=== PATIENT | male | born 1940 | race American Indian/Alaskan Native ===

== ENCOUNTER 2022-04-13 18:05 | Inpatient (IN) | payer MEDICARE ==
--- NOTE | 2022-04-13 20:49 | XRay Report ---
CHEST 1 VIEW 04/13/2022 8:26 PM INDICATION / CLINICAL INFORMATION: Altered Mental Status. COMPARISON: None available. FINDINGS: SUPPORT DEVICES: None. HEART / MEDIASTINUM: Upper limits of normal. LUNGS / PLEURA: Bilateral interstitial opacities are noted. There is airspace disease in the right lo wer lung. There is a small right pleural effusion. No pneumothorax. ADDITIONAL FINDINGS: No significant additional findings. IMPRESSION: 1. Diffuse interstitial opacities are of uncertain acuity. This could be due to pulmonary edema. Ther e is a small right pleural effusion. Given this, adjacent right lower lung airspace disease could be due to atelectasis. Correlate clinically for congestive failure. Signer Name: Mesfin Huang MD Signed: 04/13/2022 8:45 PM Workstation Name: [id number]
--- NOTE | 2022-04-13 21:06 | Emergency Department Report ---
ED General Adult HPI - General Chief complaint: Altered Mental Status Stated complaint: AMS Time Seen by Provider: 04/13/22 19:31 Source: patient, EMS Mode of arrival: Stretcher Limitations: Altered Mental Status - History of Present Illness Initial comments: The patient presents to the emergency department from a local assisted living for altered mental status x1 day. There is also reports that the patient was complaining of burning with urination. Patient is alert but slightly confused on exam but is able to answer questions. Patient denies chest pain, shortness breath, or abdominal pain. -: unknown Severity scale (0 -10): 2 Quality: burning Consistency: intermittent Improves with: none Worsens with: none Associated Symptoms: denies other symptoms Treatments Prior to Arrival: none - Related Data Allergies Allergy/AdvReac Type Severity Reaction Status Date / Time Penicillins AdvReac Unknown Verified 04/13/22 18:25 ED Review of Systems ROS: Stated complaint: AMS Other details as noted in HPI Comment: All other systems reviewed and negative Constitutional: denies: chills, fever Eyes: denies: eye pain, eye discharge, vision change ENT: denies: ear pain, throat pain Respiratory: denies: cough, shortness of breath, wheezing Cardiovascular: denies: chest pain, palpitations Endocrine: no symptoms reported Gastrointestinal: denies: abdominal pain, nausea, diarrhea Genitourinary: denies: urgency, dysuria Musculoskeletal: denies: back pain, joint swelling, arthralgia Skin: denies: rash, lesions Neurological: denies: headache, weakness, paresthesias Psychiatric: denies: anxiety, depression Hematological/Lymphatic: denies: easy bleeding, easy bruising ED Physical Exam - General Limitations: Altered Mental Status General appearance: alert, in no apparent distress - Head Head exam: Present: atraumatic, normocephalic - Eye Eye exam: Present: normal appearance, PERRL, EOMI - ENT ENT exam: Present: mucous membranes moist - Neck Neck exam: Present: normal inspection - Respiratory Respiratory exam: Present: rales. Absent: respiratory distress - Cardiovascular Cardiovascular Exam: Present: regular rate, normal rhythm. Absent: systolic murmur, diastolic murmur, rubs, gallop - GI/Abdominal GI/Abdominal exam: Present: soft, normal bowel sounds. Absent: distended, tenderness - Rectal Rectal exam: Present: deferred - Extremities Exam Extremities exam: Present: normal inspection - Back Exam Back exam: Present: normal inspection - Neurological Exam Neurological exam: Present: alert (But slightly confused ) - Skin Skin exam: Present: warm, dry, intact, normal color. Absent: rash ED Course Vital Signs 04/13/22 18:20 Temperature 98 F Pulse Rate 87 Respiratory 18 Rate Blood Pressure 104/71 [Left] O2 Sat by Pulse 99 Oximetry ED Medical Decision Making - Lab Data Result diagrams: 04/13/22 20:56 04/13/22 20:56 Lab Results 04/13/22 04/13/22 04/13/22 Range/Units 20:56 20:56 20:56 WBC 7.8 (4.5-11.0) K/mm3 RBC 3.97 (3.65-5.03) M/mm3 Hgb 8.9 L (11.8-15.2) gm/dl Hct 29.3 L (35.5-45.6) % MCV 74 L (84-94) fl MCH 22 L (28-32) pg MCHC 30 L (32-34) % RDW 22.5 H (13.2-15.2) % Plt Count 242 (140-440) K/mm3 Lymph % (Auto) 21.6 (13.4-35.0) % Clarke % (Auto) 6.5 (0.0-7.3) % Eos % (Auto) 2.5 (0.0-4.3) % Baso % (Auto) 1.4 (0.0-1.8) % Lymph # (Auto) 1.7 (1.2-5.4) K/mm3 Clarke # (Auto) 0.5 (0.0-0.8) K/mm3 Eos # (Auto) 0.2 (0.0-0.4) K/mm3 Baso # (Auto) 0.1 (0.0-0.1) K/mm3 Seg Neutrophils % 68.0 (40.0-70.0) % Seg Neutrophils # 5.3 (1.8-7.7) K/mm3 PT 16.6 H (12.2-14.9) Sec. INR 1.17 H (0.87-1.13) APTT 39.3 H (24.2-36.6) Sec. Sodium 142 (137-145) mmol/L Potassium 3.8 (3.6-5.0) mmol/L Chloride 106.4 (98-107) mmol/L Carbon Dioxide 22 (22-30) mmol/L Anion Gap 17 mmol/L BUN 27 H (9-20) mg/dL Creatinine 1.0 (0.8-1.3) mg/dL Estimated GFR > 60 ml/min BUN/Creatinine Ratio 27 % Glucose 94 (75-100) mg/dL Calcium 8.3 L (8.4-10.2) mg/dL Total Bilirubin 0.40 (0.1-1.2) mg/dL AST 10 (5-40) units/L ALT 8 (7-56) units/L Alkaline Phosphatase 194 H (35-129) units/L Ammonia (25-60) umol/L Total Creatine Kinase 25 L (55-170) units/L Troponin T 0.012 (0.00-0.029) ng/mL NT-Pro-B Natriuret Pep 81605 H (0-900) pg/mL Total Protein 6.5 (6.3-8.2) g/dL Albumin 2.8 L (3.9-5) g/dL Albumin/Globulin Ratio 0.8 % TSH (0.270-4.200) mlU/mL Salicylates (2.8-20.0) mg/dL Plasma/Serum Alcohol (0-0.07) % 04/13/22 04/13/22 04/13/22 Range/Units 20:56 20:56 20:56 WBC (4.5-11.0) K/mm3 RBC (3.65-5.03) M/mm3 Hgb (11.8-15.2) gm/dl Hct (35.5-45.6) % MCV (84-94) fl MCH (28-32) pg MCHC (32-34) % RDW (13.2-15.2) % Plt Count (140-440) K/mm3 Lymph % (Auto) (13.4-35.0) % Clarke % (Auto) (0.0-7.3) % Eos % (Auto) (0.0-4.3) % Baso % (Auto) (0.0-1.8) % Lymph # (Auto) (1.2-5.4) K/mm3 Clarke # (Auto) (0.0-0.8) K/mm3 Eos # (Auto) (0.0-0.4) K/mm3 Baso # (Auto) (0.0-0.1) K/mm3 Seg Neutrophils % (40.0-70.0) % Seg Neutrophils # (1.8-7.7) K/mm3 PT (12.2-14.9) Sec. INR (0.87-1.13) APTT (24.2-36.6) Sec. Sodium (137-145) mmol/L Potassium (3.6-5.0) mmol/L Chloride (98-107) mmol/L Carbon Dioxide (22-30) mmol/L Anion Gap mmol/L BUN (9-20) mg/dL Creatinine (0.8-1.3) mg/dL Estimated GFR ml/min BUN/Creatinine Ratio % Glucose (75-100) mg/dL Calcium (8.4-10.2) mg/dL Total Bilirubin (0.1-1.2) mg/dL AST (5-40) units/L ALT (7-56) units/L Alkaline Phosphatase (35-129) units/L Ammonia < 10.0 L (25-60) umol/L Total Creatine Kinase (55-170) units/L Troponin T (0.00-0.029) ng/mL NT-Pro-B Natriuret Pep (0-900) pg/mL Total Protein (6.3-8.2) g/dL Albumin (3.9-5) g/dL Albumin/Globulin Ratio % TSH 2.170 (0.270-4.200) mlU/mL Salicylates < 0.3 L (2.8-20.0) mg/dL Plasma/Serum Alcohol (0-0.07) % 04/13/22 Range/Units 20:56 WBC (4.5-11.0) K/mm3 RBC (3.65-5.03) M/mm3 Hgb (11.8-15.2) gm/dl Hct (35.5-45.6) % MCV (84-94) fl MCH (28-32) pg MCHC (32-34) % RDW (13.2-15.2) % Plt Count (140-440) K/mm3 Lymph % (Auto) (13.4-35.0) % Clarke % (Auto) (0.0-7.3) % Eos % (Auto) (0.0-4.3) % Baso % (Auto) (0.0-1.8) % Lymph # (Auto) (1.2-5.4) K/mm3 Clarke # (Auto) (0.0-0.8) K/mm3 Eos # (Auto) (0.0-0.4) K/mm3 Baso # (Auto) (0.0-0.1) K/mm3 Seg Neutrophils % (40.0-70.0) % Seg Neutrophils # (1.8-7.7) K/mm3 PT (12.2-14.9) Sec. INR (0.87-1.13) APTT (24.2-36.6) Sec. Sodium (137-145) mmol/L Potassium (3.6-5.0) mmol/L Chloride (98-107) mmol/L Carbon Dioxide (22-30) mmol/L Anion Gap mmol/L BUN (9-20) mg/dL Creatinine (0.8-1.3) mg/dL Estimated GFR ml/min BUN/Creatinine Ratio % Glucose (75-100) mg/dL Calcium (8.4-10.2) mg/dL Total Bilirubin (0.1-1.2) mg/dL AST (5-40) units/L ALT (7-56) units/L Alkaline Phosphatase (35-129) units/L Ammonia (25-60) umol/L Total Creatine Kinase (55-170) units/L Troponin T (0.00-0.029) ng/mL NT-Pro-B Natriuret Pep (0-900) pg/mL Total Protein (6.3-8.2) g/dL Albumin (3.9-5) g/dL Albumin/Globulin Ratio % TSH (0.270-4.200) mlU/mL Salicylates (2.8-20.0) mg/dL Plasma/Serum Alcohol < 0.01 (0-0.07) % - Medical Decision Making IV Lasix given IV antibiotics initiated Critical Care Time: Yes Critical care time in (mins) excluding proc time.: 35 Critical care attestation.: If time is entered above; I have spent that time in minutes in the direct care of this critically ill patient, excluding procedure time. ED Disposition Clinical Impression: Pulmonary edema, Altered mental status, UTI (urinary tract infection) Disposition: 09 ADMITTED INPATIENT Is pt being admited?: Yes Does the pt Need Aspirin: No Condition: Stable Instructions: Pulmonary Edema (ED) Referrals: PRIMARY CARE, [Primary Care Provider] - 3-5 Days
[2022-04-13 21:19] LABS: Basophils # (Auto) 0.1 K/mm3 (0.0-0.1); Basophils % (Auto) 1.4 % (0.0-1.8); Eosinophils # (Auto) 0.2 K/mm3 (0.0-0.4); Eosinophils % (Auto) 2.5 % (0.0-4.3); Hematocrit 29.3 % (35.5-45.6); Hemoglobin 8.9 gm/dl (11.8-15.2); Lymphocytes # (Auto) 1.7 K/mm3 (1.2-5.4); Lymphocytes % (Auto) 21.6 % (13.4-35.0); Mean Corpuscular HGB Conc 30 % (32-34); Mean Corpuscular Volume 74 fl (84-94); Monocytes # (Auto) 0.5 K/mm3 (0.0-0.8); Monocytes % (Auto) 6.5 % (0.0-7.3); Platelet Count 242 K/mm3 (140-440); Red Blood Count 3.97 M/mm3 (3.65-5.03)
[2022-04-13 21:22] LABS: Red Cell Distribution Width 22.5 % (13.2-15.2)
[2022-04-13 21:28] LABS: INR 1.17 (0.87-1.13)
[2022-04-13 21:29] LABS: Partial Thromboplastin Time 39.3 Sec. (24.2-36.6)
--- NOTE | 2022-04-13 21:35 | Cat Scan Report ---
CT HEAD WITHOUT CONTRAST INDICATION / CLINICAL INFORMATION: Altered Mental Status. TECHNIQUE: All CT scans at this location are performed using CT dose reduction for ALARA by means of automated e xposure control. COMPARISON: None available. FINDINGS: HEMORRHAGE: No evidence of intracranial hemorrhage or extra-axial fluid collection. EXTRA-AXIAL SPACES: Cortical sulci and sylvian fissures are enlarged reflecting a degree of parenchym al volume loss which is within normal limits for the patient's age of 81 years. Basilar cisterns have an unremarkable appearance. VENTRICULAR SYSTEM: The third and lateral ventricles are enlarged reflecting presence of age related parenchymal volume loss. CEREBRAL PARENCHYMA: Periventricular and deep white matter lucency is observed. This is probably seco ndary to microvascular ischemic change. There is no indication of recent infarction. No areas of ence phalomalacia are identified. MIDLINE SHIFT OR HERNIATION: There is no mass effect. CEREBELLUM / BRAINSTEM: Brainstem has an unremarkable appearance. Age related cerebellar atrophy is n oted. MIDLINE STRUCTURES:Pituitary gland has an unremarkable appearance. No abnormalities are seen in the p ineal region. INTRACRANIAL VESSELS:Calcified atherosclerotic plaque is present along the course of the cavernous se gments of both internal carotid arteries. Similar findings are seen at the distal vertebral arteries. CRANIOCERVICAL JUNCTION:No significant abnormality. ORBITS: visualized portions of the orbits have an unremarkable appearance. SOFT TISSUES of HEAD: No significant abnormality. CALVARIUM: Evaluation of bone windows reveals no abnormalities. PARANASAL SINUSES / MASTOID AIR CELLS: Paranasal sinuses are free from inflammatory mucosal disease. Mastoid air cells are normally pneumatized. IMPRESSION: 1. Age-related involutional changes of parenchymal volume loss, microvascular ischemia and advanced c alcified intercranial atherosclerotic plaque. 2. No acute intracranial abnormality. Signer Name: Klever Menchaca MD Signed: 04/13/2022 9:31 PM Workstation Name: [id number]
[2022-04-13 22:31] LABS: Alanine Aminotransferase 8 units/L (7-56); Albumin 2.8 g/dL (3.9-5); BUN/Creatinine Ratio 27; Blood Urea Nitrogen 27 mg/dL (9-20); Calcium 8.3 mg/dL (8.4-10.2); Hemolysis Index 1
[2022-04-13] MEDS ORDERED: FUROSEMIDE 40 MG/4 ML INJ IV ONE (23:24)
[2022-04-13 23:46] LABS: Bilirubin,Urine Negative (Negative); Blood,Urine Moderate (Negative); Color,Urine Colorless (Yellow)
[2022-04-13 23:47] LABS: Protein,Urine <30 mg dL mg/dL (Negative); Urobilinogen,Urine 0.2 mg/dL (<2.0)
[2022-04-13 23:50] LABS: Bacteria,Urine 3+ /HPF (Negative); Hyaline Casts,Urine 3 /LPF
[2022-04-13 23:52] LABS: WBC,Urine > 182.0 /HPF (0.0-6.0)
[2022-04-14] MEDS ORDERED: ONDANSETRON 4 MG/2 ML INJ IV PRN (01:38)
[2022-04-14] MEDS ORDERED: MORPHINE 2 MG/1 ML INJ IV PRN (01:38)
[2022-04-14] MEDS ORDERED: ACETAMINOPHEN 325 MG TAB PO PRN (01:38)
[2022-04-14] MEDS ORDERED: MORPHINE 4 MG/1 ML INJ IV PRN (01:38)
[2022-04-14] MEDS ORDERED: MAGNESIUM HYDROXIDE (MOM) ORAL LIQD UDC PO PRN (01:38)
--- NOTE | 2022-04-14 01:56 | History and Physical Report ---
History of Present Illness Date of examination: 04/14/22 Date of admission: 04/13/2022 Chief complaint: Altered Mental Status History of present illness: 81-year-old male resident of an assisted living facility brought into the emergency room today for evaluation of changes in mental status. Patient was said to have been complaining of dysuria. There has been no fever or chills, no chest pain or shortness of breath. Most of the history was given by the ER faustinof mima as patient is not able to provide any history at this time. Work-up in the emergency room today, chest x-ray shows diffuse interstitial opacities of uncertain acuity. This could be due to pulmonary edema. There is also a small right pleural effusion. CT scan of the head shows no acute abnormality. Lab reveals BNP of 12 450, hemoglobin of 8.9 and hematocrit of 29.3. Urinalysis significant for UTI. Patient has been commenced on empiric IV antibiotics for UTI. Past History Past Medical History: denies: No medical history Past Surgical History: denies: No surgical history Social history: denies: no significant social history Family history: denies: no significant family history Medications and Allergies Allergies Allergy/AdvReac Type Severity Reaction Status Date / Time Penicillins AdvReac Unknown Verified 04/13/22 18:25 Active Meds: Active Medications Acetaminophen (Acetaminophen 325 Mg Tab) 650 mg PO Q4H PRN PRN Reason: Pain MILD(1-3)/Fever >100.5/SCOTT Heparin Sodium (Porcine) (Heparin 5,000 Unit/1 Ml Vial) 5,000 unit SUB-Q Q8HR YENIFER Levofloxacin/Dextrose (Levaquin 750mg/150ml) 750 mg in 150 mls @ 100 mls/hr IV Q24H YENIFER; Protocol Magnesium Hydroxide (Magnesium Hydroxide (Mom) Oral Liqd Udc) 30 ml PO Q4H PRN PRN Reason: Constipation Morphine Sulfate (Morphine 2 Mg/1 Ml Inj) 2 mg IV Q4H PRN PRN Reason: Pain, Moderate (4-6) Morphine Sulfate (Morphine 4 Mg/1 Ml Inj) 4 mg IV Q4H PRN PRN Reason: Pain , Severe (7-10) Ondansetron HCl (Ondansetron 4 Mg/2 Ml Inj) 4 mg IV Q8H PRN PRN Reason: Nausea And Vomiting Sodium Chloride (Sodium Chloride 0.9% 10 Ml Flush Syringe) 10 ml IV BID YENIFER Sodium Chloride (Sodium Chloride 0.9% 10 Ml Flush Syringe) 10 ml IV PRN PRN PRN Reason: LINE FLUSH Review of Systems ROS unobtainable: due to mental status Exam - Constitutional Vitals: Temp Pulse Resp BP Pulse Ox 98 F 87 18 104/71 99 04/13/22 18:20 04/13/22 18:20 04/13/22 18:20 04/13/22 18:20 04/13/22 18:20 General appearance: Present: no acute distress, well-nourished - EENT Eyes: Present: PERRL, EOM intact. Absent: scleral icterus ENT: hearing intact, clear oral mucosa, dentition normal - Neck Neck: Present: supple, normal ROM - Respiratory Respiratory effort: normal Respiratory: bilateral: diminished - Cardiovascular Rhythm: regular Heart Sounds: Present: S1 & S2. Absent: gallop, systolic murmur, diastolic murmur, rub, click - Extremities Extremities: no ischemia, pulses intact, pulses symmetrical, No edema, normal temperature, normal color, Full ROM Peripheral Pulses: within normal limits - Abdominal General gastrointestinal: Present: soft, non-tender, non-distended, normal bowel sounds. Absent: mass - Integumentary Integumentary: Present: clear, warm, dry, normal turgor. Absent: rash - Musculoskeletal Musculoskeletal: strength equal bilaterally - Psychiatric Psychiatric: appropriate mood/affect, intact judgment & insight, memory intact, cooperative - Neurologic Neurologic: CNII-XII intact, no focal deficits, moves all extremities HEART Score - HEART Score Troponin: Troponin T 0.012 ng/mL (0.00-0.029) 04/13/22 20:56 Results - Labs CBC & Chem 7: 04/13/22 20:56 04/13/22 20:56 Labs: Abnormal lab results 04/13/22 04/13/22 04/13/22 Range/Units 20:56 20:56 20:56 Hgb 8.9 L (11.8-15.2) gm/dl Hct 29.3 L (35.5-45.6) % MCV 74 L (84-94) fl MCH 22 L (28-32) pg MCHC 30 L (32-34) % RDW 22.5 H (13.2-15.2) % PT 16.6 H (12.2-14.9) Sec. INR 1.17 H (0.87-1.13) APTT 39.3 H (24.2-36.6) Sec. BUN 27 H (9-20) mg/dL Calcium 8.3 L (8.4-10.2) mg/dL Alkaline Phosphatase 194 H (35-129) units/L Ammonia (25-60) umol/L Total Creatine Kinase 25 L (55-170) units/L NT-Pro-B Natriuret Pep 83168 H (0-900) pg/mL Albumin 2.8 L (3.9-5) g/dL Urine Blood (Negative) Urine WBC (Auto) (0.0-6.0) /HPF Salicylates (2.8-20.0) mg/dL 04/13/22 04/13/22 04/13/22 Range/Units 20:56 20:56 Unknown Hgb (11.8-15.2) gm/dl Hct (35.5-45.6) % MCV (84-94) fl MCH (28-32) pg MCHC (32-34) % RDW (13.2-15.2) % PT (12.2-14.9) Sec. INR (0.87-1.13) APTT (24.2-36.6) Sec. BUN (9-20) mg/dL Calcium (8.4-10.2) mg/dL Alkaline Phosphatase (35-129) units/L Ammonia < 10.0 L (25-60) umol/L Total Creatine Kinase (55-170) units/L NT-Pro-B Natriuret Pep (0-900) pg/mL Albumin (3.9-5) g/dL Urine Blood Moderate A (Negative) Urine WBC (Auto) > 182.0 H (0.0-6.0) /HPF Salicylates < 0.3 L (2.8-20.0) mg/dL Assessment and Plan Assessment: 1.Altered Mental Status 2.UTI 3.Pulmonary Edema-possible CHF Plan: 1. Patient commenced on empiric IV antibiotics. Will await culture results. 2. We will resume routine home medications once reconciled. 3. We will schedule patient for echocardiogram. We will request cardiology evaluation for possible new onset CHF. DVT Prophylaxis:SQ Heparin Code Status: Full Code
[2022-04-14] MEDS: HEPARIN 5,000 UNIT/1 ML VIAL SUB-Q SCH ×3 (07:26→21:37)
--- NOTE | 2022-04-14 13:18 | Consultation ---
History of Present Illness Consult date: 04/14/22 Consult reason: congestive heart failure History of present illness: The patient is a frail, elderly, 81-year-old man who lives in a senior care, brought to the hospital with complaints of altered mental status and burning with urination. On presentation to the hospital there was no fever, and no leukocytosis, but his urinalysis was abnormal with greater than 182 white cells. In the emergency room, his work-up also included a chest x-ray, which was reported with diffuse mild bilateral opacities, and "CHF" was questioned. C ardiology consultation was requested. The patient has no cardiac complaints, no chest pain, no shortness of breath, no lower extremity edema. My review of the chest x-ray shows a normal-sized cardia c silhouette with diffuse interstitial opacities that appear nonspecific, likely chronic lung disease. No significant evidence of interstitial edema or heart failure. There is a device in the thorax that appears consistent with either a loop recorder or a leadless pacemaker. Patient's old records are not available at this time, and there is no twelve-lead EKG available in the chart, but his telemetry strips do show a ventricular paced rhythm. He is currently on the telemetry floor, appears comfortable in no acute distress. Past History Past Medical History: other (Leadless pacemaker implant) Past Surgical History: denies: No surgical history Social history: denies: no significant social history Family history: denies: no significant family history Medications and Allergies Allergies Allergy/AdvReac Type Severity Reaction Status Date / Time Penicillins AdvReac Unknown Verified 04/13/22 18:25 Active Meds: Active Medications Acetaminophen (Acetaminophen 325 Mg Tab) 650 mg PO Q4H PRN PRN Reason: Pain MILD(1-3)/Fever >100.5/SCOTT Heparin Sodium (Porcine) (Heparin 5,000 Unit/1 Ml Vial) 5,000 unit SUB-Q Q8HR YENIFER Last Admin: 04/14/22 07:26 Dose: 5,000 unit Levofloxacin/Dextrose (Levaquin 750mg/150ml) 750 mg in 150 mls @ 100 mls/hr IV Q24H YENIFER; Protocol Magnesium Hydroxide (Magnesium Hydroxide (Mom) Oral Liqd Udc) 30 ml PO Q4H PRN PRN Reason: Constipation Morphine Sulfate (Morphine 2 Mg/1 Ml Inj) 2 mg IV Q4H PRN PRN Reason: Pain, Moderate (4-6) Morphine Sulfate (Morphine 4 Mg/1 Ml Inj) 4 mg IV Q4H PRN PRN Reason: Pain , Severe (7-10) Ondansetron HCl (Ondansetron 4 Mg/2 Ml Inj) 4 mg IV Q8H PRN PRN Reason: Nausea And Vomiting Sodium Chloride (Sodium Chloride 0.9% 10 Ml Flush Syringe) 10 ml IV BID YENIFER Last Admin: 04/14/22 11:44 Dose: Not Given Sodium Chloride (Sodium Chloride 0.9% 10 Ml Flush Syringe) 10 ml IV PRN PRN PRN Reason: LINE FLUSH Review of Systems Cardiovascular: no chest pain, no orthopnea, no palpitations, no rapid/irregular heart beat, no edema, no syncope, no lightheadedness, no shortness of breath Physical Examination Vital Signs Temp Pulse Resp BP Pulse Ox 98 F 87 18 104/71 99 04/13/22 18:20 04/13/22 18:20 04/13/22 18:20 04/13/22 18:20 04/13/22 18:20 General appearance: no acute distress, cachectic, other (Frail, elderly) HEENT: Positive: PERRL Neck: Positive: neck supple Cardiac: Positive: Irregularly Regular Lungs: Positive: Decreased Breath Sounds Neuro: Positive: Weakness (Generalized lethargy) Abdomen: Positive: Soft Male genitourinary: Positive: deferred Skin: Positive: Clear Extremities: Absent: edema Results 04/13/22 20:56 04/13/22 20:56 Cardiac Enzymes 04/13/22 Range/Units 20:56 AST 10 (5-40) units/L Coagulation 04/13/22 Range/Units 20:56 PT 16.6 H (12.2-14.9) Sec. INR 1.17 H (0.87-1.13) APTT 39.3 H (24.2-36.6) Sec. CBC 04/13/22 Range/Units 20:56 WBC 7.8 (4.5-11.0) K/mm3 RBC 3.97 (3.65-5.03) M/mm3 Hgb 8.9 L (11.8-15.2) gm/dl Hct 29.3 L (35.5-45.6) % Plt Count 242 (140-440) K/mm3 Lymph # (Auto) 1.7 (1.2-5.4) K/mm3 [place] # (Auto) 0.5 (0.0-0.8) K/mm3 Eos # (Auto) 0.2 (0.0-0.4) K/mm3 Baso # (Auto) 0.1 (0.0-0.1) K/mm3 Comprehensive Metabolic Panel 04/13/22 Range/Units 20:56 Sodium 142 (137-145) mmol/L Potassium 3.8 (3.6-5.0) mmol/L Chloride 106.4 (98-107) mmol/L Carbon Dioxide 22 (22-30) mmol/L BUN 27 H (9-20) mg/dL Creatinine 1.0 (0.8-1.3) mg/dL Glucose 94 (75-100) mg/dL Calcium 8.3 L (8.4-10.2) mg/dL AST 10 (5-40) units/L ALT 8 (7-56) units/L Alkaline Phosphatase 194 H (35-129) units/L Total Protein 6.5 (6.3-8.2) g/dL Albumin 2.8 L (3.9-5) g/dL Assessment and Plan - Patient Problems (1) Abnormal chest x-ray Current Visit: Yes Status: Acute Plan to address problem: Patient presented with altered mental status and burning on urination, with evidence of UTI. There are no cardiac complaints. His chest x-ray shows mild diffuse interstitial opacities, on my review does not appear consistent with pulmonary edema. No further cardiac work-up is indicated in the absence of cardiac symptoms, will follow intermittently.
--- NOTE | 2022-04-14 13:19 | Event Note ---
Date: 04/14/22 Patient seen at bedside. He refuses to participate in interview and has been refusing medications as well as the echocardiogram. Family would like hospice at discharge. Hospice orders were put in along with coronavirus PCR. Patient to be discharged in the next 24 to 48 hours.
[2022-04-15] MEDS: HEPARIN 5,000 UNIT/1 ML VIAL SUB-Q SCH ×2 (05:25→14:19)
[2022-04-15 05:43] LABS: Basophils # (Auto) 0.2 K/mm3 (0.0-0.1); Basophils % (Auto) 2.1 % (0.0-1.8); Eosinophils # (Auto) 0.1 K/mm3 (0.0-0.4); Eosinophils % (Auto) 0.9 % (0.0-4.3); Hematocrit 27.9 % (35.5-45.6); Hemoglobin 8.7 gm/dl (11.8-15.2); Lymphocytes # (Auto) 1.1 K/mm3 (1.2-5.4); Lymphocytes % (Auto) 13.3 % (13.4-35.0); Mean Corpuscular HGB Conc 31 % (32-34); Mean Corpuscular Volume 73 fl (84-94); Monocytes # (Auto) 0.6 K/mm3 (0.0-0.8); Monocytes % (Auto) 6.5 % (0.0-7.3); Platelet Count 218 K/mm3 (140-440); Red Blood Count 3.84 M/mm3 (3.65-5.03)
[2022-04-15 05:46] LABS: Red Cell Distribution Width 22.4 % (13.2-15.2)
[2022-04-15 06:01] LABS: BUN/Creatinine Ratio 18; Blood Urea Nitrogen 21 mg/dL (9-20); Calcium 8.3 mg/dL (8.4-10.2); Hemolysis Index 0
--- NOTE | 2022-04-15 07:56 | Discharge Summary ---
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 Per reports his only complaint was dysuria. He is admitted for further care. CT scan of the head was negative for acute [place]. [place] [address] and anemia. Echocardiogram was ordered for elevated BNP which the patient refused. He was treated for urinary tract infection. The patient's mental status improved and he was discharged home. Disposition: 50 HOSPICE/HOME Final Discharge Diagnosis (Prints w/discharge instructions): acute metabolic encephalopathy secondary to acute cystitis. Acute cystitis with hematuria. Chronic microcytic anemia. Elevated NT proBNP. Pulmonary edema ruled out Time spent for discharge: 40 minutes Core Measure Documentation - Palliative Care Palliative Care/ Comfort Measures: Hospice Care - Core Measures Any of the following diagnoses?: none Exam - Physical Exam Narrative exam: GENERAL: Thin elderly male. In no acute distress. HEENT: Normocephalic. Atraumatic. NECK: Supple. CHEST/LUNGS: CTAB on room air HEART/CARDIOVASCULAR: RRR. No murmur, rubs or gallops appreciated. ABDOMEN: +BS. NT/ND. : Santiago catheter in place. SKIN: No rashes noted. NEURO: No focal motor deficit. Follows all commands. MUSCULOSKELETAL: No joint effusion EXTREMITIES: No cyanosis, clubbing or edema. PSYCH: Cooperative. - Constitutional Vitals: Temp Pulse Resp BP Pulse Ox 98.6 F 70 18 100/68 98 04/15/22 03:41 04/15/22 03:41 04/15/22 04:00 04/15/22 03:41 04/15/22 04:00 Plan Care Plan Goals: Please follow-up with your primary care physician. Take the antibiotics for your urinary tract infection until completed. Follow up with: PRIMARY CAREMD [Primary Care Provider] - 3-5 Days Prescriptions: levoFLOXacin [Levaquin] 750 mg PO QDAY 5 Days #5 tablet
[2022-04-15 20:06] VITALS: BP 96/70
--- NOTE | 2022-04-18 10:08 | Electrocardiograph Report ---
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
== END 2022-04-15 21:11 | disposition hospice, home (50) | DRG 689 ==
LOC: ED 18:05 → 4A 04-14 01:38
PROVIDERS: ADMIT Internal Medicine Geriatric Medicine; ATTEND Student in an Organized Health Care Education/Training Program
DX: N30.01 Acute cystitis with hematuria (principal); G93.41 Metabolic encephalopathy; Z20.822 Contact with and (suspected) exposure to COVID-19; D50.9 Iron deficiency anemia, unspecified; Z95.0 Presence of cardiac pacemaker; Z51.5 Encounter for palliative care; Z88.0 Allergy status to penicillin
CPT/HCPCS: 36415; 70450; 71045; 80048; 80053; 80320; 81001; 82140; 82550; 83880; 84443; 84484; 85025; 85610; 85730; 87040; 87076; 87086; 87186; 93005; G0378; G0480; J1644; J1940; J1956; U0003